=== PATIENT | male | born 1935 | race Caucasian/White ===

== ENCOUNTER 2016-11-30 06:43 | Day surgery (SDC) | payer MEDICARE, BC ==
--- NOTE | ~2016-11-30 | EGD ---
EGD REPORT [facility] [address] [address] NAME: ANTONIETTA BENAVIDES : 31 [place] [facility] [place] [id number] AGE: 81 ADM/REG DATE : 11/30/16 MR#: [id number] REPORT SERV DATE: 11/30/16 DICTATED BY: DARION WELLINGTON DATE: 11/30/16 REPORT STATUS : Draft TRANSCRIBED BY: [facility] DATE: 11/30/16 [facility] Patient Name: Antonietta Benavides Date of : 1935 Attending MD: DARION WELLINGTON MD Procedure Date No Time: 11/30/2016 Procedure: Colonoscopy Indications: Hematochezia, Anemia (Prior colon 08/2016, not good prep) Referring MD: JUAN JOSÉ DAVISON Medicines: See the Anesthesia note for documentation of the administered medications Complications: No immediate complications. Procedure: Pre-Anesthesia Assessment: - ASA Grade Assessment: III - A patient with severe systemic disease. After I obtained informed consent, the scope was passed under direct vision. Throughout the procedure, the patient's blood pressure, pulse, and oxygen saturations were monitored continuously. The CF [id number] was introduced through the anus and advanced to the cecum, identified by appendiceal orifice and ileocecal valve. The colonoscopy was performed without difficulty. The patient tolerated the procedure well. The quality of the bowel preparation was adequate. Findings: The perianal and digital rectal examinations were normal. Diverticula were found in the sigmoid colon. Internal hemorrhoids were found during retroflexion and were small. A polyp was found in the ascending colon. The polyp was small in size. The polyp was removed with a cold biopsy forceps. Resection and retrieval were complete. Five sessile polyps were found in the rectum. The polyps were small in size. These polyps were removed with a cold biopsy forceps. Resection and retrieval were complete. Impression: - Diverticulosis in the sigmoid colon. - Internal hemorrhoids. - One small polyp in the ascending colon. Resected and retrieved. - Five small polyps in the rectum. Resected and retrieved. Recommendation: - Patient has a contact number available for emergencies. The signs and symptoms of potential delayed EGD REPORT [address] [address] NAME: ANTONIETTA BENAVIDES : 31 [place] [facility] [place] [id number] AGE: 81 ADM/REG DATE : 11/30/16 MR#: [id number] REPORT SERV DATE: 11/30/16 DICTATED BY: DARION WELLINGTON DATE: 11/30/16 REPORT STATUS : Draft TRANSCRIBED BY: [employer] DATE: 11/30/16 complications were discussed with the patient. Return to normal activities tomorrow. Written discharge instructions were provided to the patient. - Regular diet. - Continue present medications. - Repeat colonoscopy is not recommended for surveillance. - FOR YOUR BIOPSY RESULTS: Please go to [email or web address] and register to receive your results via the portal. Your biopsy results will be posted there in about 7 to 10 days. IF you do not see result in 10 days, call office. Procedure Code(s): --- Professional --- 31746, Colonoscopy, flexible, proximal to splenic flexure; with biopsy, single or multiple Diagnosis Code(s): --- Professional --- K64.8, Other hemorrhoids K57.30, Diverticulosis of large intestine without perforation or abscess without bleeding K62.1, Rectal polyp D12.2, Benign neoplasm of ascending colon K92.1, Melena D64.9, Anemia, unspecified CPT copyright 2013 [employer]. All rights reserved. The codes documented in this report are preliminary and upon letter stamping machine operator review may be revised to meet current compliance requirements. Darion Wellington MD DARION WELLINGTON MD 11/30/2016 8:34 AM This report has been signed electronically. Number of Addenda: 0 Note Initiated On: 11/30/2016 7:57 AM Scope Withdrawal Time 0 hours 10 minutes 53 seconds [id number] [place] [address]
[~2016-11-30 06:43] MED LIST: 8 HOUR650 MG PO; ASA5GR PO; DSS PO; FLOMAX4 PO; HIP INJECTION IM; LEVOTHYROXIN25 MCG PO; LIDODERM TOP; NORV10 PO; PRIN5 PO; PROSCAR5 PO; PROTONIX PO; SURBEX-T1 TAB PO; ULTRAM50 PO; VITC500 PO; ZESTRIL20 MG PO; [UNRECOGNIZED DRUG - OTHER] PO; [UNRECOGNIZED DRUG - REMARK] IJ
== END 2016-11-30 23:59 | disposition home or self-care (01) ==
LOC: DMU 06:43
PROVIDERS: Internal Medicine Gastroenterology
PROC: 0DBP8ZZ Excision of Rectum, Via Natural or Artificial Opening Endoscopic (ICD-10-PCS; 2016-11-30)
PROC: 0DBK8ZZ Excision of Ascending Colon, Via Natural or Artificial Opening Endoscopic (ICD-10-PCS; principal; 2016-11-30 08:30)
DX: D12.2 Benign neoplasm of ascending colon (principal); K62.1 Rectal polyp; K57.30 Diverticulosis of large intestine without perforation or abscess without bleeding; K64.8 Other hemorrhoids; I10 Essential (primary) hypertension; D64.9 Anemia, unspecified; K21.9 Gastro-esophageal reflux disease without esophagitis; E03.9 Hypothyroidism, unspecified; E87.1 Hypo-osmolality and hyponatremia; Z87.891 Personal history of nicotine dependence; Z98.890 Other specified postprocedural states
CPT/HCPCS: 88305